=== PATIENT | female | born 1945 | race Caucasian/White ===

== ENCOUNTER 2022-06-22 04:35 | Inpatient (IN) ==
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
--- NOTE | 2022-06-22 05:38 | Cat Scan Report ---
CLINICAL INFORMATION: Trauma-fall COMPARISON: None. TECHNIQUE: 2.5 mm helical slices were obtained in the skull base to vertex. Following reconstruction, axial reformatted images were reviewed at bone and parenchymal windows. The exam was performed using radiation dose optimization techniques including, but not limited to, automated exposure control, adjustment of the mA and/or kV according to patient size and use of iterative reconstruction technique. FINDINGS: The ventricles, sulci, fissures, and cisterns are symmetrically enlarged compatible with mild age-related atrophy. Very small amount of hemorrhage is seen within two years sulci of the right parietal lobe near vertex likely related to trauma.. Mild patchy chronic ischemic changes, in the deep cerebral white matter, are expected for age. There is no hemorrhage, mass effect, or edema. Bone windows show no osseous abnormality. IMPRESSION: Minor posttraumatic subarachnoid hemorrhage within right parietal sulci near vertex. Suggest neurologic observation and repeat head CT 5 to 6 hours. Mild atrophy and chronic ischemic changes in the deep cerebral white matter-expected for age. Interpreted and Authenticated by: Bora Cooper 06/22/22
--- NOTE | 2022-06-22 05:43 | Cat Scan Report ---
CLINICAL INFORMATION: Trauma COMPARISON: None. TECHNIQUE: 0.625 mm helical slices were obtained from the skull base through the superior T2 end plate. Following reconstruction, 2.5 mm sagittal, coronal and axial reformations , with and without disc space angling, were processed. The exam was reviewed at bone and soft tissue windows. The exam was performed using radiation dose optimization techniques including, but not limited to, automated exposure control, adjustment of the mA and/or kV according to patient size and use of iterative reconstruction technique. FINDINGS: Sagittal and coronal reformatted images show 3 mm of C4 anterior subluxation due to degenerative facet disease. The remaining cervical spine is anatomically aligned. There is no fracture or other osseous abnormality. The cervical cord is normal in contour and caliber without focal lesion. The soft tissues are normal. At C2-3, minimal broad disc protrusion mildly impinges the anterior thecal sac. C3-4 disc level is normal. At C4-5, mild broad disc protrusion grade 1 spondylolisthesis and facet arthropathy results in only mild central canal narrowing At C5-6, moderate broad disc spur complex results in mild central canal stenosis. At C6-7, mild broad disc spur complex results in mild central canal narrowing C7-T1 disc level is normal. IMPRESSION: 1. No fracture or posttraumatic change. 2. Mild Multilevel degeneration Interpreted and Authenticated by: Bora Cooper 06/22/22
--- NOTE | 2022-06-22 05:58 | XRay Report ---
CLINICAL INFORMATION: Trauma COMPARISON: None FINDINGS: Transverse fracture through the surgical neck is markedly displaced with the humeral diaphysis one chest with anterior to the anatomic neck of the humerus. The distal fragment is angulated posteriorly at least 30 degrees. Moderate acromioclavicular and glenohumeral degeneration appreciated. There is moderate soft tissue swelling. IMPRESSION: Markedly displaced and angulated transverse fracture of the surgical neck of the humerus. Interpreted and Authenticated by: Bora Cooper 06/22/22
[2022-06-22] MEDS ORDERED: ACETAMINOPHEN 325 MG TABLET PO ONE ×2 (06:08→06:44)
[2022-06-22 06:42] LABS: POC Calcium, Ionized 1.22 (1.16-1.32); POC Creatinine 0.6 (0.6-1.2)
[2022-06-22 07:06] LABS: Basophils # (Auto) 0.05 K/mcL (0.00-0.30); Basophils % (Auto) 0.3 % (0.0-2.0); Eosinophils # (Auto) 0.11 K/mcL (0.00-0.70); Eosinophils % (Auto) 0.7 % (0.0-7.0); Hematocrit 38.2 % (34.1-44.9); Hemoglobin 12.1 g/dL (11.2-15.7); Lymphocytes # (Auto) 1.65 K/mcL (1.50-4.80); Lymphocytes % (Auto) 11.2 % (15.5-49.0); Mean Cell Volume 89.9 fL (80.0-100.0); Mean Corpuscular HGB Conc 31.7 g/dL (31.0-36.0); Mean Platelet Volume 11.4 fL (8.8-12.5); Monocytes % (Auto) 6.1 % (1.0-12.0); Neutrophils % (Auto) 81.4 % (38.0-78.0); Platelet Count 297 K/mcL (140-440); RBC 4.25 M/mcL (3.59-5.38); Red Cell Distribution Width 14.3 % (11.5-14.5); WBC 14.8 K/mcL (4.5-11.0)
[2022-06-22] MEDS: morphine 2 MG/ML VIAL IV PRN ×2 (10:46→12:57)
--- NOTE | 2022-06-22 17:15 | Emergency Department Note ---
Course Course Course Narrative: I assumed care of patient at 0 700 pending accepting facility. Please refer to Dr. Clark's note for care up to this point. Unfortunate we could not find a facility that would accept the patient. Initial CT of the head did show she had a small subarachnoid hemorrhage. Off going provider did speak with neurosurgeon who recommended repeat and CT of the head in 12 hours. Patient remained hemodynamically stable throughout the day. She remained neurologically intact. Repeat CT at the 12-hour lewis showed that the subarachnoid hemorrhage had completely resolved. Case was discussed with orthopedic surgeon, Dr. Patel, who states that patient will need surgical correction of her left surgical neck fracture of her humerus. Case was discussed with hospitalist who has agreed to admit the patient since her subarachnoid hemorrhage has resolved. Plan of care was discussed with patient she expressed verbal understanding and agreement. Vital Signs Vital signs: Vital Signs Temperature 97.0 F 06/22/22 04:37 Pulse Rate 64 06/22/22 04:37 Respiratory Rate 16 06/22/22 04:37 Blood Pressure 146/66 06/22/22 04:37 Pulse Oximetry (%) 97 06/22/22 04:37 Oxygen Delivery Method 06/22/22 04:37 Temperature 97.0 F 06/22/22 04:37 Pulse Rate 73 06/22/22 15:40 Respiratory Rate 14 06/22/22 15:40 Blood Pressure 109/97 06/22/22 15:30 Pulse Oximetry (%) 96 06/22/22 15:40 Oxygen Delivery Method 06/22/22 04:37 MDM MDM Narrative Medical decision making narrative: Narrative: Differential Diagnosis Differential Diagnosis: Subarachnoid hemorrhage, left humerus fracture, fall Medical Records Medical records reviewed: Yes I reviewed the patient's medical records. Lab Data Lab results reviewed: Yes I reviewed the patient's lab results. Result diagrams: 06/22/22 06:14 Labs: Lab Results 06/22/22 06/22/22 Range/Units 06:14 06:40 WBC 14.8 H (4.5-11.0) K/mcL RBC 4.25 (3.59-5.38) M/mcL Hgb 12.1 (11.2-15.7) g/dL Hct 38.2 (34.1-44.9) % POC Hct 35.0 L (36-48) MCV 89.9 (80.0-100.0) fL MCH 28.5 (26.0-34.0) pg MCHC 31.7 (31.0-36.0) g/dL RDW 14.3 (11.5-14.5) % Plt Count 297 (140-440) K/mcL MPV 11.4 (8.8-12.5) fL Immature Gran % (Auto) 0.3 (0.0-0.5) % Neut % (Auto) 81.4 H (38.0-78.0) % Lymph % (Auto) 11.2 L (15.5-49.0) % [place] % (Auto) 6.1 (1.0-12.0) % Eos % (Auto) 0.7 (0.0-7.0) % Baso % (Auto) 0.3 (0.0-2.0) % Lymph # (Auto) 1.65 (1.50-4.80) K/mcL [place] # (Auto) 0.90 (0.10-0.90) K/mcL Eos # (Auto) 0.11 (0.00-0.70) K/mcL Baso # (Auto) 0.05 (0.00-0.30) K/mcL Immature Gran # 0.05 (0.00-0.05) K/mcl Absolute Neutrophils 12.01 H (1.80-8.00) K/mcL POC Sodium 142 (133-145) POC Potassium 4.0 (3.3-5.1) POC Chloride 108 (96-108) POC Total CO2 24.0 (22-30) POC BUN 18 (6-20) POC Creatinine 0.6 (0.6-1.2) POC Glucose 112 H (70-105) POC WB Ioniz Calcium 1.22 (1.16-1.32) Radiology Data Radiology results reviewed: Yes I reviewed the patient's radiology results. Radiology results narrative: Repeat CT head obtained, agree with radiologist interpretation Core Measures AMI Core Measures Followed: Yes Discharge Plan Patient/Caregiver Discharge Instructions Pt seen by INCENDIARIES SUPERVISOR/PA only: No Clinical Impression: Fracture, humerus, SAH (subarachnoid hemorrhage), Fall Patient Disposition: Xfer As Outpt/Obs ([facility]) Condition: Good Follow up with: Bora Patel MD [Physician] - Sugey Gonzales ARNP [Primary Care Provider] - Prescriptions: No Action calcium carbonate 600 mg calcium (1,500 mg) tablet 600 mg PO QDAY tumeric PO DAILY cholecalciferol (vitamin D3) 5,000 unit capsule 5,000 unit PO QDAY cranberry PO QDAY Focus Factor PO yfpuzs-atyc-afqa-levomef-silic 10-50-500-0.5 mg capsule PO vitamin B complex [B Complex-Vitamin B12] Tablet 1 tab PO QDAY omega-3 fatty acids [Super [place]-3] 1,000 mg capsule 1,000 mg PO QDAY solifenacin [Vesicare] 10 mg tablet 10 mg PO QDAY Qty: 90 1RF
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
--- NOTE | 2022-06-22 18:42 | XRay Report ---
CLINICAL INFORMATION: Preop COMPARISON: None. TECHNIQUE: Portable FINDINGS: Heart is equivocally enlarged accentuated by leftward rotation. No change. Mediastinum and pulmonary vessels are normal. Minor left basilar atelectasis noted. No effusions. IMPRESSION: Borderline cardiomegaly-stable. No acute disease Interpreted and Authenticated by: Bora Cooper 06/22/22
--- NOTE | 2022-06-22 18:47 | Cat Scan Report ---
CLINICAL INFORMATION: Minor right parietal posttraumatic subarachnoid hemorrhage COMPARISON: Head CT 06/22/2022 0500 hours. TECHNIQUE: 2.5 mm helical slices were obtained in the skull base to vertex. Following reconstruction, axial reformatted images were reviewed at bone and parenchymal windows. The exam was performed using radiation dose optimization techniques including, but not limited to, automated exposure control, adjustment of the mA and/or kV according to patient size and use of iterative reconstruction technique. FINDINGS: The ventricles, sulci, fissures, and cisterns are symmetrically enlarged compatible with mild age-related atrophy. The small amount of hemorrhage within the right parietal lobe sulci has, essentially, cleared with very minimal faint residual. Mild patchy chronic ischemic changes, in the deep cerebral white matter, are expected for age. There is no hemorrhage, mass effect, or edema. Bone windows show no osseous abnormality. IMPRESSION: Post traumatic subarachnoid hemorrhage within the right parietal sulci near vertex has, essentially, cleared. No further imaging follow-up required. Mild atrophy and chronic ischemic changes in the deep cerebral white matter-expected for age. Interpreted and Authenticated by: Bora Cooper 06/22/22
[2022-06-22] MEDS ORDERED: ONDANSETRON 4 MG/2 ML VIAL IV PRN (18:48)
[2022-06-22] MEDS ORDERED: morphine 4 MG/ML VIAL IV PRN (18:48)
[2022-06-22] MEDS ORDERED: SENNOSIDES 1 TABLET PO SCH (21:00)
[2022-06-22] MEDS: DOCUSATE SODIUM 100 MG CAPSULE PO SCH (21:22)
[2022-06-22] MEDS: ACETAMINOPHEN 500 MG TABLET PO SCH (21:22)
[2022-06-22] MEDS: 0.9 % SODIUM CHLORIDE 10 ML SYRINGE IV SCH (21:23)
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
[2022-06-23] MEDS: oxyCODONE HCL 5 MG TABLET PO PRN ×2 (05:39→16:26)
[2022-06-23] MEDS: 0.9 % SODIUM CHLORIDE 10 ML SYRINGE IV SCH ×3 (05:40→21:07)
[2022-06-23 06:28] LABS: Basophils # (Auto) 0.03 K/mcL (0.00-0.30); Basophils % (Auto) 0.3 % (0.0-2.0); Eosinophils # (Auto) 0.03 K/mcL (0.00-0.70); Eosinophils % (Auto) 0.3 % (0.0-7.0); Hematocrit 33.7 % (34.1-44.9); Hemoglobin 10.7 g/dL (11.2-15.7); Lymphocytes # (Auto) 1.91 K/mcL (1.50-4.80); Lymphocytes % (Auto) 21.2 % (15.5-49.0); Mean Cell Volume 89.4 fL (80.0-100.0); Mean Corpuscular HGB Conc 31.8 g/dL (31.0-36.0); Mean Platelet Volume 9.8 fL (8.8-12.5); Monocytes # (Auto) 0.87 K/mcL (0.10-0.90); Monocytes % (Auto) 9.6 % (1.0-12.0); Neutrophils % (Auto) 68.3 % (38.0-78.0); Platelet Count 346 K/mcL (140-440); RBC 3.77 M/mcL (3.59-5.38); Red Cell Distribution Width 14.3 % (11.5-14.5)
[2022-06-23] MEDS ORDERED: IPRATROPIUM/ALBUTEROL 3 ML AMPUL.NEB NEB PRN ×2 (06:51→18:36)
[2022-06-23 06:58] LABS: Blood Urea Nitrogen 16 mg/dL (8-23); Calcium 8.7 mg/dL (8.6-10.4); Carbon Dioxide 24 mmol/L (22-30); Chloride 106 mmol/L (96-108); Glomerular Filtration Rate 88; Glucose 106 mg/dL (70-105)
[2022-06-23] MEDS: ACETAMINOPHEN 500 MG TABLET PO SCH ×3 (07:57→21:02)
[2022-06-23] MEDS: DOCUSATE SODIUM 100 MG CAPSULE PO SCH ×2 (07:57→21:03)
--- NOTE | 2022-06-23 07:58 | EKG ---
[facility] Test Date: 2022-06-22 Pat Name: Rosalva Balderas Department: ED Room: Gender: Female [employer] Set Up Operator: JAMIL : 1945 Requested By: Edmundo Galindo Order Number: [id number] Reading MD: Bora Parker M.D. Measurements Intervals [place] Rate: 73 P: 54 VT: 149 QRS: -3 QRSD: 90 T: -6 QT: 386 QTc: 427 Interpretive Statements Sinus rhythm Borderline T abnormalities, anterior leads Electronically Signed On 06-23-2022 7:58:15 PST by Bora Parker M.D. /store/[email or web address]/[id number]
[2022-06-23] MEDS: ENOXAPARIN 40 MG/0.4 ML SYRINGE SQ SCH (08:01)
[2022-06-23 08:05] LABS: Prothrombin Time 13.2 sec (11.9-14.5)
--- NOTE | 2022-06-23 08:50 | Internal Med Progress Note ---
SUBJECTIVE Subjective Patient information: Note initiated : 06/23/22 at 8:48 am Service Date, if different from initiated Date: [] Patient: Rosalva Balderas 77 y/o F admitted on 06/22/22 for Pt fell down 8 stairs with possible LOC,. Chief Complaint: [Fall] Principal diagnosis: L humeral fracture Interval history: The patient was resting comfortably in bed. She was able to eat breakfast. Her surgery is later this afternoon. She states that her pain is well controlled. She has no other active complaints or concerns. Constitutional Vitals: Vital Signs Temp Pulse Resp BP Pulse Ox O2 Del Method 98.4 F 78 20 110/66 95 06/23/22 08:00 06/23/22 08:00 06/23/22 08:00 06/23/22 08:00 06/23/22 08:00 06/23/22 08:00 Period Temp Pulse Resp BP Sys/Lopez Pulse Ox O2 Del Method O2 Flow Rate Last 24 Hr 97.5 F-98.4 F 66-85 10-26 96-132/50-97 92-98 Room Air-Room Air Intake and Output 06/22/22 06/23/22 06/23/22 19:59 03:59 11:59 Intake Total 450 400 Output Total 300 200 Balance 150 200 Weight 48.126 kg Intake & Output: Intake & Output 06/22/22 06/23/22 06/23/22 19:59 03:59 11:59 Intake Total 450 400 Output Total 300 200 Balance 150 200 Weight 48.126 kg Intake: Oral 450 400 Output: Void Amount 300 200 Other: Feeding Ability Independent Urine Appearance Clear Clear Urine Color Dark Yellow Yellow # Voids 1 Head Head exam: Present atraumatic and normal inspection Eye Eye exam: Present normal appearance ENT ENT exam: Present mucous membranes moist, normal exam and normal external ear exam Neck Neck exam: Present normal inspection Respiratory Respiratory exam: Present normal respiratory exam Cardiovascular Cardiovascular exam: Present normal rate and rhythm GI/Abdominal GI/Abdominal exam: Present normal bowel sounds Back Exam Back exam: Present normal inspection Neurological Exam Neurological exam: Present alert and oriented X3 Skin Skin exam: Present intact and warm OBJ DATA Labs CBC & Chem 7: 06/23/22 05:22 06/23/22 05:22 Labs: Abnormal Lab Results 06/23/22 06/23/22 06/22/22 05:22 05:22 06:40 WBC Hgb 10.7 L Hct 33.7 L POC Hct 35.0 L Neut % (Auto) Lymph % (Auto) Absolute Neutrophils Anion Gap 7.0 L Glucose 106 H POC Glucose 112 H 06/22/22 06:14 WBC 14.8 H Hgb Hct POC Hct Neut % (Auto) 81.4 H Lymph % (Auto) 11.2 L Absolute Neutrophils 12.01 H Anion Gap Glucose POC Glucose Meds: Medications Acetaminophen (Acetaminophen 500 Mg Tablet) 1,000 mg PO TID [facility]; Protocol Last Admin: 06/23/22 07:57 Dose: 1,000 mg Albuterol/Ipratropium (Ipratropium/Albuterol 3 Ml Ampul.Neb) 3 ml NEB ONCE PRN PRN Reason: Shortness Of Breath Stop: 06/23/22 08:52 Docusate Sodium (Docusate Sodium 100 Mg Capsule) 100 mg PO BID [facility] Last Admin: 06/23/22 07:57 Dose: 100 mg Enoxaparin Sodium (Enoxaparin 40 Mg/0.4 Ml Syringe) 40 mg SQ DAILY [facility] Last Admin: 06/23/22 08:01 Dose: 40 mg Morphine Sulfate (Morphine 4 Mg/Ml Vial) 4 mg IV Q4HP PRN; Protocol PRN Reason: Per Pain Protocol Ondansetron HCl (Ondansetron 4 Mg/2 Ml Vial) 4 mg IV Q6HP PRN PRN Reason: Nausea And Vomiting Oxycodone HCl (Oxycodone Hcl 5 Mg Tablet) 5 mg PO Q4HP PRN; Protocol PRN Reason: Per Pain Protocol Last Admin: 06/23/22 05:39 Dose: 5 mg Senna (Sennosides 1 Tablet) 2 tab PO HS [facility] Last Admin: 06/22/22 21:21 Dose: 2 tab Sodium Chloride (0.9 % Sodium Chloride 10 Ml Syringe) 10 ml IV Q8 [facility] Last Admin: 06/23/22 05:40 Dose: 10 ml A/P Assessment and plan (1) Fracture, humerus: Status: Acute Qualifiers: Encounter type: initial encounter Fracture alignment: displaced Fracture morphology: unspecified fracture morphology Fracture type: closed Humerus Location: surgical neck Laterality: left Qualified Code(s): S42.212A - Unspecified displaced fracture of surgical neck of left humerus, initial encounter for closed fracture (2) SAH (subarachnoid hemorrhage): Status: Acute (3) Fall: Status: Acute Qualifiers: Encounter type: initial encounter Qualified Code(s): W19.XXXA - Unspec ified fall, initial encounter (4) Osteoarthritis: Status: Chronic Qualifiers: Osteoarthritis location: multiple joints Osteoarthritis type: primary Qualified Code(s): M15.0 - Primary generalized (osteo)arthritis Narrative A/P Narrative: The patient will be seen by orthopedic surgery for surgical evaluation likely in the next 24 hours. She will be made n.p.o. after midnight. Continue pain control with narcotic analgesics. The patient is not on antiplatelet or anticoagulation. She will require PT and OT assessment. CODE STATUS was discussed with the patient and her daughter at the bedside and she confirmed full code. Medication reconciliation is pending. 06/23: The patient was scheduled for the OR today by orthopedic surgery. Postop care per orthopedic surgery team. Time Spent With Patient Time: Total time spent is greater than 50% in coordination of care (as documented) at patient's floor/unit and/or counseling patient: Total time spent with greater than 50% in coordination of care (as documented) at patient's floor/unit and/or counseling patient:: 25 - 35 minutes QUALITY VTE Deep Vein Thrombosis/Pulmonary Embolism Present on Admission: No
[2022-06-23] MEDS ORDERED: ceFAZolin 2 GM in DEXTROSE 5% IN WATER 50 ML IV SCH (14:30)
[2022-06-23] MEDS ORDERED: TRANEXAMIC ACID 1,000 MG/10 ML VIAL ONE ×2 (17:00→19:30)
[2022-06-23] MEDS ORDERED: ONDANSETRON 4 MG/2 ML VIAL ONE (17:00)
[2022-06-23] MEDS ORDERED: fentaNYL 100 MCG/2 ML VIAL IV ONE (17:00)
[2022-06-23] MEDS ORDERED: ROCURONIUM 10 MG/ML ML IV ONE (17:00)
[2022-06-23] MEDS ORDERED: PROPOFOL 200 MG/20 ML VIAL IV ONE (17:00)
[2022-06-23] MEDS ORDERED: DEXAMETHASONE 10 MG/ML VIAL ONE (17:00)
[2022-06-23] MEDS ORDERED: SUGAMMADEX SODIUM 200 MG/2 ML VIAL IV ONE (17:00)
[2022-06-23] MEDS ORDERED: LIDOCAINE HCL/PF 100 MG/5 ML SYRINGE IV ONE (17:00)
[2022-06-23] MEDS ORDERED: ROPIVACAINE HCL/PF 20 ML VIAL IJ ONE (17:00)
[2022-06-23] MEDS ORDERED: fentaNYL 100 MCG/2 ML VIAL IV PRN (18:36)
[2022-06-23] MEDS ORDERED: ACETAMINOPHEN 1,000 MG/100 ML BAG IV ONE ×2 (18:36→19:24)
[2022-06-23] MEDS ORDERED: ONDANSETRON 4 MG/2 ML VIAL IV PRN ×2 (18:36→18:51)
[2022-06-23] MEDS ORDERED: NALOXONE HCL 0.4 MG/ML VIAL IV PRN (18:36)
[2022-06-23] MEDS ORDERED: METHOCARBAMOL 1,000 MG/10 ML VIAL IV PRN (18:36)
[2022-06-23] MEDS ORDERED: LABETALOL 5 MG/ML ML IV PRN (18:36)
[2022-06-23] MEDS ORDERED: LACTATED RINGERS 1,000 ML IV SCH (18:45)
--- NOTE | 2022-06-23 18:50 | Brief Operative Note ---
Brief Operative Note Date of procedure: 06/23/22 Pre-op diagnosis: left shoulder proximal humerus fracture Post-op diagnosis: same Procedure: left reverse total shoulder arthroplasty, open biceps reinsertion Grafts/Implants: Yes Anesthesia: GETA Findings: proximal humerus fracture 4 part with head split, proximal biceps tendinosis Complications: none Surgeon: Bora Patel Ship Joiner: Ja Villegas Estimated blood loss (cc): 150 Specimens Removed/Pathology: none sent Condition: stable Disposition: PACU
--- NOTE | 2022-06-23 18:50 | Discharge Plan ---
Discharge Instructions - TSA Patient Instructions Total Shoulder Protocol: Leave immobilizer in place except for bathing and ROM. Abduction pillow. Continue to wear sling until seen by physician. Codman Pendulum : These exercises use momentum produced by your body to move your shoulder joint. Bend your knees and shift your weight to your front leg, then back, allowing your arm to swing in the same directions. Using the same technique, alternately shift your weight between your right and left legs, allowing your arm to swing from side to side. These exercises are also performed in counterclockwise and clockwise circular motions. Typically these exercises are performed several times per day, for a set number repetitions or minutes, such as 20 times in a row or 5 minutes at a time. Discharge Plan Patient/Caregiver Discharge Instructions Activity: non-weight bearing Diet: Regular Diet Prescriptions: No Action tumeric capsule 1,000 mg PO QDAY cholecalciferol (vitamin D3) 5,000 unit capsule 2,000 mcg PO QDAY cranberry 1,400 mg PO QDAY Focus Factor 2 pill PO BID pnvhiy-arwc-ladw-levomef-silic 10-50-500-0.5 mg capsule 12,000 cap PO TID vitamin B complex [B Complex-Vitamin B12] Tablet 2 tab PO QDAY omega-3 fatty acids [Super [place]-3] 1,000 mg capsule 1,000 mg PO QPMAC ijlvhec-azzm-jwzyg-oreg-capryl capsule 1,000 mg PO QHS resveratrol 100 mg Capsule 200 mg PO BID Calcium Citrate + D with Mag capsule 1,000 mg PO QDAY Calcium Citrate + D with Mag capsule 500 mg PO QHS solifenacin [Vesicare] 10 mg tablet 10 mg PO QHS strontium vjknomqoe-[id number] 680-30 mg Tablet 1 tab PO BID Follow Up Plan Follow up with: Bora Patel MD [Physician] - Sugey Gonzales ARNP [Primary Care Provider] - Patient Disposition: Home, Self-Care Prognosis: Good Rehab Potential: Good I certify that the patient requires SNF services: No Overall status at discharge: patient is progressing back to baseline Discharge Orders: Discharge Order (Routine); Ordered 06/23/22 Ordered By: Bora Patel Discharge Comment: cc: reverse total shoulder s/p proximal humerus fr
[2022-06-23] MEDS ORDERED: METHOCARBAMOL 750 MG TABLET PO PRN (18:51)
[2022-06-23] MEDS ORDERED: MAGNESIUM HYDROXIDE 30 ML ORAL.SUSP PO PRN (18:51)
[2022-06-23] MEDS ORDERED: FLEETS ADULT ENEMA PR PRN (18:51)
[2022-06-23] MEDS ORDERED: BISACODYL 10 MG SUPP.RECT PR PRN (18:51)
[2022-06-23] MEDS ORDERED: POLYETHYLENE GLYCOL 3350 17 GM PACKET PO PRN (18:51)
[2022-06-23] MEDS ORDERED: HYDROcodone/APAP 10/325MG TABLET PO PRN (18:51)
[2022-06-23] MEDS ORDERED: ONDANSETRON 4 MG ODT TABLET SL PRN (18:51)
[2022-06-23] MEDS ORDERED: morphine 4 MG/ML VIAL IV PRN (18:51)
[2022-06-23] MEDS ORDERED: TRANEXAMIC ACID 1,000 MG/10 ML VIAL IV ONE (18:51)
[2022-06-23] MEDS: LACTATED RINGERS 1,000 ML IV SCH (20:15)
[2022-06-23] MEDS ORDERED: SENNOSIDES 1 TABLET PO SCH (21:00)
[2022-06-24] MEDS: ceFAZolin 1 GM VIAL IV SCH ×2 (01:10→08:30)
[2022-06-24] MEDS: LACTATED RINGERS 1,000 ML IV SCH ×2 (04:06→11:46)
[2022-06-24] MEDS: 0.9 % SODIUM CHLORIDE 10 ML SYRINGE IV SCH ×2 (05:01→13:49)
[2022-06-24 06:53] LABS: Hematocrit 30.5 % (34.1-44.9); Hemoglobin 9.8 g/dL (11.2-15.7)
--- NOTE | 2022-06-24 08:10 | XRay Report ---
HISTORY: Recent left shoulder fracture with shoulder replacement FINDINGS: There is a well-positioned reverse shoulder prosthesis. There are residual small bone fragments seen on the axillary view along both ventral and dorsal sides of the metaphyseal region of the humerus. IMPRESSION: Well-positioned left shoulder prosthesis Interpreted and Authenticated by: Werner Parker 06/24/22
[2022-06-24] MEDS: ACETAMINOPHEN 500 MG TABLET PO SCH ×2 (08:31→15:09)
[2022-06-24] MEDS: DOCUSATE SODIUM 100 MG CAPSULE PO SCH (08:31)
[2022-06-24] MEDS: ENOXAPARIN 40 MG/0.4 ML SYRINGE SQ SCH (08:31)
--- NOTE | 2022-06-24 08:44 | Operative Note ---
DATE OF OPERATION: 06/23/2022 DATE OF PROCEDURE: 06/23/2022 PREOPERATIVE DIAGNOSES: 1. Left shoulder complex proximal humerus fracture. 2. Left shoulder proximal biceps tendinitis. POSTOPERATIVE DIAGNOSES: 1. Left shoulder complex proximal humerus fracture. 2. Left shoulder complex proximal humerus fracture. PROCEDURE PERFORMED: 1. Left reverse total shoulder arthroplasty. 2. Left shoulder soft tissue biceps tenodesis. SURGEON: Bora Patel M.D. CLINICAL LAW PROFESSOR SURGEON: Alexys Villegas PA-C. The expertise and technical skill of this provider were required throughout the case. The MIKI assisted with preoperative coordination, intraoperative retraction, wound closure, and dressing and splint application, as well as postoperative documentation and care coordination. ANESTHESIA: General. ESTIMATED BLOOD LOSS: 150 mL COMPLICATIONS: None noted. SPECIMENS REMOVED: None DRAINS: None. IMPLANTS: 1. DePuy Delta Xtend lateralized glenosphere +2, 38 mm standard. 2. DePuy Delta Xtend nonlocking metaglene screw 4.5 x 18 x1. 3. DePuy locking metaglene screw 4.5 x 24 x3. 4. DePuy Delta Xtend humeral polyethylene cup standard 38+3. 5. DePuy Delta Xtend cementless metaglene +15 VALLADARES-coated, cementless. 6. DePuy Global Unite reverse fracture Epicenter Porocoat. 7. DePuy Global Unite Porocoat standard stem size 8. 8. DePuy CMW2 gentamicin bone cement 20 grams x2. INDICATIONS: The patient fell down some stairs and sustained a complex proximal humerus fracture. Radiographs confirmed that the fracture was comminuted and we elected to proceed with the above surgery. After a long discussion of treatment options, the patient elected to proceed with reverse total shoulder arthroplasty and soft tissue biceps tenodesis. The risks and benefits were discussed with the patient in detail including, but not limited to, the risks of anesthesia, problems with the heart or lungs related to anesthesia, infection, compromise or injury to the nerves and blood vessels, deep venous thrombosis, pulmonary embolism, pneumonia, continued pain after surgery, worsening pain or symptoms after surgery, swelling, loss of motion, instability, fracture, arm length discrepancy, and need for repeat surgery. DESCRIPTION OF PROCEDURE: The patient was seen in the preanesthesia waiting room where all questions were answered and the correct side and site were identified and marked. The patient was transferred to the operating room and administered the anesthetic, tranexamic acid, and given preoperative antibiotics. A timeout was then called. The patient was placed in the modified beach chair position with all prominences well padded. The extremity was prepped and draped from the fingers up to the neck. A standard deltopectoral skin incision was created. Dissection was carried down to the deltopectoral groove and the cephalic vein was isolated medially and retracted laterally with the deltoid. Retractors were placed and the coracobrachialis was split up to the coracoacromial ligament allowing retraction of the conjoined tendon. There was a complex proximal humerus fracture, the head split; I removed the supraspinatus and infraspinatus with the central portion of the tuberosity as well as the head and placed tag stitches in the bone underlying around the insertion of the subscapularis and the teres. This was tagged for later repair. The biceps was cut and a soft tissue tenodesis was performed into the anterior shoulder with #2 FiberWire. A capsular release was performed in a posterior subperiosteal direction along the humerus. The humeral head was then dislocated. We established intramedullary access and hand reamed up to get good cortical chatter with the DePuy Delta Xtend reverse total shoulder instrumentation. We then used the intramedullary guide and set to about 10 degrees of retroversion. Attention was then turned to the glenoid. Retractors were placed for optimal visualization and the labrum was excised in its entirety. A centralizing Steinmann pin was placed just into the posterior inferior quadrant in a standard fashion. We reamed over the pin to remove all the cartilage and get to a good base for the prosthesis. There was a crack of the posterior glenoid. The drill was then placed over for the central peg. A cementless metaglene was then impacted into place. We then drilled, measured, and placed the four screws starting inferior, then superior, then anterior, and finally posterior. The superior locking screw was lined up at the base of the coracoid process. We then impacted the head onto the metaglene and tightened down in a standard fashion. Attention was then turned back to the humerus. We again set version and broached up to a stable implant. Trials were placed and good tension, motion, and stability were obtained at this point. Trials were removed and the final press fit humeral prosthesis was impacted into place with measured version. The final polyethylene was placed and the shoulder was reduced and again checked for motion, tension, and stability. We then sutured the bony fragments to the epiphysis and then sutured over the top of them in a [id number] repair with FiberWire. We irrigated with 3 liters of antibiotic saline and closed the subscapularis with #2 FiberWire. We irrigated again and closed the deltopectoral interval with several 0 Vicryl [id number] sutures. The subcutaneous layer was closed with 2-0 Monocryl and the skin was closed with marie. A sterile pressure dressing was applied and the patient was placed into an abduction sling. All needle and sponge counts were correct. The patient was transferred to the recovery room in stable condition. KEYSHAWN:[email or web address] Job ID: [id number] Doc ID: [id number] Arnold Patel MD
--- NOTE | 2022-06-24 09:08 | Internal Med Progress Note ---
SUBJECTIVE Subjective Patient information: Note initiated : 06/24/22 at 9:07 am Service Date, if different from initiated Date: [] Patient: Rosalva Balderas 77 y/o F admitted on 06/22/22 for Pt fell down 8 stairs with possible LOC,. Chief Complaint: [] Principal diagnosis: L humeral fracture Interval history: The patient was resting comfortably in bed. She states that her pain was well controlled. Constitutional Vitals: Vital Signs Temp Pulse Resp BP Pulse Ox O2 Del Method O2 Flow Rate 98.2 F 80 20 132/63 95 0 06/24/22 07:45 06/24/22 07:45 06/24/22 03:28 06/24/22 07:45 06/24/22 07:45 06/24/22 07:45 06/23/22 20:03 Period Temp Pulse Resp BP Sys/Lopez Pulse Ox O2 Del Method O2 Flow Rate Last 24 Hr 96.6 F-98.9 F 59-80 13-28 104-175/54-92 89-100 Room Air-Room Air 0-6 Intake and Output 06/23/22 06/24/22 06/24/22 19:59 03:59 11:59 Intake Total 150 1050 1681 Output Total 600 600 250 Balance -829 054 8526 Weight 48.126 kg 51.936 kg Intake & Output: Intake & Output 06/23/22 06/24/22 06/24/22 19:59 03:59 11:59 Intake Total 150 1050 1681 Output Total 600 600 250 Balance -962 667 4469 Weight 48.126 kg 51.936 kg Intake: IV 50 100 981 Lactated Ringers 1,000 ml @ 125 981 mls/hr IV .Q8H [facility] Rx#: [id number] Ancef 2 gm In Dextrose 5% in 50 Water 50 ml @ 100 mls/hr IV PREOP [facility] Rx#:[id number] Oral 100 700 IV - Manual Only 950 Output: Void Amount 600 500 250 Estimated Blood Loss 100 Other: Urine Appearance Clear Clear Urine Color Yellow Dark Yellow Yellow Urine Odor Normal # Voids 1 Head Head exam: Present atraumatic and normal inspection Eye Eye exam: Present normal appearance ENT ENT exam: Present mucous membranes moist, normal exam and normal external ear exam Neck Neck exam: Present normal inspection Respiratory Respiratory exam: Present normal respiratory exam Cardiovascular Cardiovascular exam: Present normal rate and rhythm GI/Abdominal GI/Abdominal exam: Present normal bowel sounds Back Exam Back exam: Present normal inspection Neurological Exam Neurological exam: Present alert and oriented X3 Skin Skin exam: Present intact and warm OBJ DATA Labs CBC & Chem 7: 06/24/22 05:48 06/23/22 05:22 Labs: Abnormal Lab Results 06/24/22 06/23/22 06/23/22 05:48 05:22 05:22 WBC Hgb 9.8 L 10.7 L Hct 30.5 L 33.7 L POC Hct Neut % (Auto) Lymph % (Auto) Absolute Neutrophils Anion Gap 7.0 L Glucose 106 H POC Glucose 06/22/22 06/22/22 06:40 06:14 WBC 14.8 H Hgb Hct POC Hct 35.0 L Neut % (Auto) 81.4 H Lymph % (Auto) 11.2 L Absolute Neutrophils 12.01 H Anion Gap Glucose POC Glucose 112 H Meds: Medications Acetaminophen (Acetaminophen 500 Mg Tablet) 1,000 mg PO TID [facility]; Protocol Last Admin: 06/24/22 08:31 Dose: 1,000 mg Hydrocodone Bitart/Acetaminophen (Hydrocodone/Apap 10/325mg Tablet) 1 - 2 tab PO Q4HP PRN; Protocol PRN Reason: Per Pain Protocol Bisacodyl (Bisacodyl 10 Mg Supp.Rect) 10 mg ND Q2-3DAYS PRN PRN Reason: Constipation Docusate Sodium (Docusate Sodium 100 Mg Capsule) 100 mg PO BID [facility] Last Admin: 06/24/22 08:31 Dose: 100 mg Enoxaparin Sodium (Enoxaparin 40 Mg/0.4 Ml Syringe) 40 mg SQ DAILY [facility] Last Admin: 06/24/22 08:31 Dose: 40 mg Lactated Ringer's (Lactated Ringers) 1,000 mls @ 125 mls/hr IV .Q8H [facility] Last Admin: 06/24/22 04:06 Dose: 125 mls/hr Magnesium Hydroxide (Magnesium Hydroxide 30 Ml Oral.Susp) 30 ml PO BIDP PRN PRN Reason: Constipation Methocarbamol (Methocarbamol 750 Mg Tablet) 750 mg PO Q6HP PRN PRN Reason: Muscle Spasm Morphine Sulfate (Morphine 4 Mg/Ml Vial) 2 - 6 mg IV Q1HP PRN; Protocol PRN Reason: Per Pain Protocol Ondansetron HCl (Ondansetron 4 Mg/2 Ml Vial) 4 mg IV Q4HP PRN; Protocol PRN Reason: Nausea And Vomiting Ondansetron HCl (Ondansetron 4 Mg Odt Tablet) 4 mg SL Q4HP PRN; Protocol PRN Reason: Nausea And Vomiting Oxycodone HCl (Oxycodone Hcl 5 Mg Tablet) 5 mg PO Q4HP PRN; Protocol PRN Reason: Per Pain Protocol Last Admin: 06/23/22 16:26 Dose: 5 mg Polyethylene Glycol (Polyethylene Glycol 3350 17 Gm Packet) 17 gm PO DAILYP PRN PRN Reason: Constipation Senna (Sennosides 1 Tablet) 2 tab PO HS [facility] Last Admin: 06/23/22 21:04 Dose: 2 tab Sodium Biphosphate/Sodium Phosphate (Fleets Adult Enema) 1 dose ND Q3-4DAYS PRN PRN Reason: Constipation Sodium Chloride (0.9 % Sodium Chloride 10 Ml Syringe) 10 ml IV Q8 [facility] Last Admin: 06/24/22 05:01 Dose: Not Given A/P Assessment and plan (1) Fracture, humerus: Status: Acute Qualifiers: Encounter type: initial encounter Fracture alignment: displaced Fracture morphology: unspecified fracture morphology Fracture type: closed Humerus Location: surgical neck Laterality: left Qualified Code(s): S42.212A - Unspecified displaced fracture of surgical neck of left humerus, initial encounter for closed fracture (2) SAH (subarachnoid hemorrhage): Status: Acute (3) Fall: Status: Acute Qualifiers: Encounter type: initial encounter Qualified Code(s): W19.XXXA - Unspecified fall, initial encounter (4) Osteoarthritis: Status: Chronic Qualifiers: Osteoarthritis location: multiple joints Osteoarthritis type: primary Qualified Code(s): M15.0 - Primary generalized (osteo)arthritis Narrative A/P Narrative: The patient will be seen by orthopedic surgery for surgical evaluation likely in the next 24 hours. She will be made n.p.o. after midnight. Continue pain control with narcotic analgesics. The patient is not on antiplatelet or a nticoagulation. She will require PT and OT assessment. CODE STATUS was discussed with the patient and her daughter at the bedside and she confirmed full code. Medication reconciliation is pending. 06/23: The patient was scheduled for the OR today by orthopedic surgery. Postop care per orthopedic surgery team. 06/24: The patient's pain is well controlled. She will work with physical therapy and Occupational Therapy today. Disposition to be determined whether she will go home with home health versus to a nursing home facility. Time Spent With Patient Time: Total time spent is greater than 50% in coordination of care (as documented) at patient's floor/unit and/or counseling patient: Subsequent: Total time with patient: 25 - 34 minutes QUALITY VTE Deep Vein Thrombosis/Pulmonary Embolism Present on Admission: No
--- NOTE | 2022-06-24 09:46 | Discharge Summary ---
Discharge Provider Provider IMPORTANT FOLLOW-UP INFORMATION FOR PCP: 1. F/u with ortho Patient information: Note initiated : 06/24/22 at 9:45 am Service Date, if different from initiated Date: [] Patient: Rosalva Balderas 77 y/o F admitted on 06/22/22 for Pt fell down 8 stairs with possible LOC,. Chief Complaint: [Fall] Date of admission: 06/22/22 18:36 Discharge date: 06/24/22 Primary care physician: JOSEY Sorenson Admitting clinician: Lupe Masters Consults: 06/22/22 Consult to Physician [CONS] Stat Comment: Consulting Provider: Vini Abbasi Reason For Exam: Physician to Consult Consult to Physician [CONS] Stat Comment: Consulting Provider: Lupe Masters Reason For Exam: Physician to Consult COURSE Hospital Course Hospital course: Assessment and plan (1) Fracture, humerus: Status:Acute Qualifiers: Encounter type:initial encounterFracture alignment:displaced Fracture morphology:unspecified fracture morphologyFracture type:closed Humerus Location:surgical neckLaterality:left Qualified Code(s):S42.212A - Unspecified displaced fracture of surgical neck of left humerus, initial encounter for closed fracture (2) SAH (subarachnoid hemorrhage): Status:Acute (3) Fall: Status:Acute Qualifiers: Encounter type:initial encounter Qualified Code(s):W19.XXXA - Unspecified fall, initial encounter (4) Osteoarthritis: Status:Chronic Qualifiers: Osteoarthritis location:multiple jointsOsteoarthritis type:primary Qualified Code(s):M15.0 - Primary generalized (osteo)arthritis Narrative A/P Narrative: The patient will be seen by orthopedic surgery for surgical evaluation likely in the next 24 hours. She will be made n.p.o. after midnight. Continue pain control with narcotic analgesics. The patient is not on antiplatelet or anticoagulation. She will require PT and OT assessment. CODE STATUS was discussed with the patient and her daughter at the bedside and she confirmed full code. Medication reconciliation is pending. 06/23: The patient was scheduled for the OR today by orthopedic surgery. Postop care per orthopedic surgery team. 06/24: The patient's pain is well controlled. She will work with physical therapy and Occupational Therapy today. Patient will be discharged home today Discharge diagnosis: Left humeral fracture Time Spent with Patient Time attestation: Total time spent providing and/or coordinating discharge services: Time spent: Greater than 30 minutes EXAM Constitutional Vitals: Temp Pulse Resp BP Pulse Ox O2 Del Method O2 Flow Rate 98.2 F 80 20 132/63 95 0 06/24/22 07:45 06/24/22 07:45 06/24/22 03:28 06/24/22 07:45 06/24/22 07:45 06/24/22 07:45 06/23/22 20:03 General appearance: average body habitus Head Head exam: Present atraumatic, normal inspection and normocephalic Eye Eye exam: Present EOMI, normal appearance and PERRL; Absent conjunctival injection ENT ENT exam: Present normal exam; Absent mucous membranes dry Neck Neck exam: Present full ROM; Absent lymphadenopathy Respiratory Respiratory exam: Present normal respiratory exam and CTAB; Absent decreased breath sounds, respiratory distress or wheezes Cardiovascular Cardiovascular exam: Present normal rate and rhythm and RRR; Absent JVD GI/Abdominal GI/Abdominal exam: Present normal bowel sounds and soft; Absent diminished bowel sounds, distended, guarding, mass, rebound or tenderness Neurological Exam Neurological exam: Present alert, CN II-XII intact and oriented X3 Psychiatric Psychiatric exam: Present normal affect and normal mood Skin Skin exam: Present intact and warm; Absent erythema, pallor, petechiae or rash Discharge Data Data Completed and Pending Labs on day of discharge: Labs from last 24 hours 06/24/22 05:48 Hgb 9.8 L Hct 30.5 L Discharge Plan Patient/Caregiver Discharge Instructions Activity: non-weight bearing Diet: Regular Diet Prescriptions: New hydrocodone-acetaminophen 10-325 mg tablet 1 - 2 tab PO Q4H PRN (Reason: Pain) Qty: 60 0RF No Action tumeric capsule 1,000 mg PO QDAY cholecalciferol (vitamin D3) 5,000 unit capsule 2,000 mcg PO QDAY Focus Factor 2 pill PO BID dtcben-wfpm-ycqc-levomef-silic 10-50-500-0.5 mg capsule 12,000 cap PO TID vitamin B complex [B Complex-Vitamin B12] Tablet 2 tab PO QDAY omega-3 fatty acids [Super [place]-3] 1,000 mg capsule 1,000 mg PO QPMAC wmpkyja-xtar-avsui-oreg-capryl capsule 1,000 mg PO QHS resveratrol 100 mg Capsule 200 mg PO BID Calcium Citrate + D with Mag capsule 1,000 mg PO QDAY Calcium Citrate + D with Mag capsule 500 mg PO QHS solifenacin [Vesicare] 10 mg tablet 10 mg PO QHS strontium nkyzalsub-[id number]-FA 680-30 mg Tablet 1 tab PO BID cranberry extract 500 mg Tablet 1,500 mg PO QDAY Other Ambulatory Orders: Brace/Splint (ONCE) Location: None Selected Ordered By: Bora Patel Follow Up Plan Follow up with: Bora Patel MD [Physician] - Sugey Gonzales ARNP [Primary Care Provider] - Patient Disposition: Home, Self-Care Prognosis: Good Rehab Potential: Good I certify that the patient requires SNF services: No Overall status at discharge: patient is progressing back to baseline Discharge Orders: Discharge Order (Routine); Ordered 06/23/22 Ordered By: Bora Patel Discharge Comment: cc: reverse total shoulder s/p proximal humerus fr QUALITY VTE Deep Vein Thrombosis/Pulmonary Embolism Present on Admission: No
[2022-06-24] MEDS: oxyCODONE HCL 5 MG TABLET PO PRN (11:35)
--- NOTE | 2022-06-24 14:32 | Orthopedic Progress Note ---
SUBJECTIVE Subjective Patient information: Note initiated : 06/24/22 at 2:29 pm Service Date, if different from initiated Date: [] Patient: Rosalva Balderas 77 y/o F admitted on 06/22/22 for Pt fell down 8 stairs with possible LOC,. Chief Complaint: [s/p left reverse TSA] Principal diagnosis: L humeral fracture Pertinent ROS: 10 points reviewed and are negative except where mentioned Constitutional Vitals: Vital Signs Temp Pulse Resp BP Pulse Ox O2 Del Method O2 Flow Rate 97.7 F 75 20 135/69 95 0 06/24/22 11:52 06/24/22 11:52 06/24/22 03:28 06/24/22 11:52 06/24/22 11:52 06/24/22 11:52 06/23/22 20:03 Period Temp Pulse Resp BP Sys/Lopez Pulse Ox O2 Del Method O2 Flow Rate Last 24 Hr 96.6 F-98.9 F 59-80 13-28 104-175/54-92 89-100 Room Air-Room Air 0-6 Intake and Output 06/24/22 06/24/22 06/24/22 03:59 11:59 19:59 Intake Total 1050 1801 1000 Output Total 600 450 300 Balance 450 1351 700 Weight 114 lb 8 oz Intake & Output: Intake & Output 06/24/22 06/24/22 06/24/22 03:59 11:59 19:59 Intake Total 1050 1801 1000 Output Total 600 450 300 Balance 450 1351 700 Weight 114 lb 8 oz Intake: IV 039 442 6446 Lactated Ringers 1,000 ml @ 603 214 4857 mls/hr IV .Q8H [facility] Rx#: [id number] Oral 820 IV - Manual Only 950 Output: Void Amount 500 450 300 Estimated Blood Loss 100 Other: Meal Breakfast Percent of Meal Consumed 100% Feeding Ability Assist with Tray Set Up Urine Appearance Clear Clear Urine Color Dark Yellow Yellow Yellow OBJ DATA Labs CBC & Chem 7: 06/24/22 05:48 06/23/22 05:22 Labs: Abnormal Lab Results 06/24/22 06/23/22 06/23/22 05:48 05:22 05:22 WBC Hgb 9.8 L 10.7 L Hct 30.5 L 33.7 L POC Hct Neut % (Auto) Lymph % (Auto) Absolute Neutrophils Anion Gap 7.0 L Glucose 106 H POC Glucose 06/22/22 06/22/22 06:40 06:14 WBC 14.8 H Hgb Hct POC Hct 35.0 L Neut % (Auto) 81.4 H Lymph % (Auto) 11.2 L Absolute Neutrophils 12.01 H Anion Gap Glucose POC Glucose 112 H Meds: Medications Acetaminophen (Acetaminophen 500 Mg Tablet) 1,000 mg PO TID [facility]; Protocol Last Admin: 06/24/22 08:31 Dose: 1,000 mg Hydrocodone Bitart/Acetaminophen (Hydrocodone/Apap 10/325mg Tablet) 1 - 2 tab PO Q4HP PRN; Protocol PRN Reason: Per Pain Protocol Last Admin: 06/24/22 13:49 Dose: 1 tab Bisacodyl (Bisacodyl 10 Mg Supp.Rect) 10 mg MD Q2-3DAYS PRN PRN Reason: Constipation Docusate Sodium (Docusate Sodium 100 Mg Capsule) 100 mg PO BID [facility] Last Admin: 06/24/22 08:31 Dose: 100 mg Enoxaparin Sodium (Enoxaparin 40 Mg/0.4 Ml Syringe) 40 mg SQ DAILY [facility] Last Admin: 06/24/22 08:31 Dose: 40 mg Lactated Ringer's (Lactated Ringers) 1,000 mls @ 125 mls/hr IV .Q8H [facility] Last Infusion: 06/24/22 12:10 Dose: Infused Magnesium Hydroxide (Magnesium Hydroxide 30 Ml Oral.Susp) 30 ml PO BIDP PRN PRN Reason: Constipation Methocarbamol (Methocarbamol 750 Mg Tablet) 750 mg PO Q6HP PRN PRN Reason: Muscle Spasm Last Admin: 06/24/22 13:49 Dose: 750 mg Morphine Sulfate (Morphine 4 Mg/Ml Vial) 2 - 6 mg IV Q1HP PRN; Protocol PRN Reason: Per Pain Protocol Last Admin: 06/24/22 12:30 Dose: 2 mg Ondansetron HCl (Ondansetron 4 Mg/2 Ml Vial) 4 mg IV Q4HP PRN; Protocol PRN Reason: Nausea And Vomiting Ondansetron HCl (Ondansetron 4 Mg Odt Tablet) 4 mg SL Q4HP PRN; Protocol PRN Reason: Nausea And Vomiting Oxycodone HCl (Oxycodone Hcl 5 Mg Tablet) 5 mg PO Q4HP PRN; Protocol PRN Reason: Per Pain Protocol Last Admin: 06/24/22 11:35 Dose: 5 mg Polyethylene Glycol (Polyethylene Glycol 3350 17 Gm Packet) 17 gm PO DAILYP PRN PRN Reason: Constipation Senna (Sennosides 1 Tablet) 2 tab PO HS [facility] Last Admin: 06/23/22 21:04 Dose: 2 tab Sodium Biphosphate/Sodium Phosphate (Fleets Adult Enema) 1 dose MD Q3-4DAYS PRN PRN Reason: Constipation Sodium Chloride (0.9 % Sodium Chloride 10 Ml Syringe) 10 ml IV Q8 [facility] Last Admin: 06/24/22 13:49 Dose: 10 ml A/P Narrative A/P Narrative: Patient seen and examined this a.m. awake alert conversant, eager for discharge. No complaints of pain on current regimen. Dressing at left upper extremity clean dry and intact, immobilization sling is in place and intact, both upper extremities are warm, well-perfused, neurovascularly intact. Patient is stable from orthopedic standpoint, will defer final disposition to attending hospitalist most likely to rehab facility Plan is for discharge in 1 to 2 days with follow-up at [facility] in 10 to 14 days. Nonweightbearing left upper extremity in sling at all times except for hygiene. PT/OT Pain control Time Spent With Patient Time: Total time spent is greater than 50% in coordination of care (as documented) at patient's floor/unit and/or counseling patient:
== END 2022-06-24 15:40 | disposition home or self-care (01) | DRG 483 ==
LOC: ED 04:35 → MEDSUR 18:36 → SUATTDRO 18:36
PROVIDERS: ADMIT Internal Medicine; ATTEND Orthopaedic Surgery Sports Medicine